=== PATIENT | male | born 1990 | race African-American/Black ===

== ENCOUNTER 2016-11-01 05:51 | Emergency (ER) | payer BC ==
[2016-11-01] MEDS ORDERED: predniSONE 20 MG TABLET (UD) PO ONE (06:04)
[2016-11-01] MEDS ORDERED: ALBUTEROL SO4 2.5/IPRATROPIUM 0.5 INH SOL 3 ML VIAL.NEB. NEB ONE ×2 (06:04→06:16)
[2016-11-01 06:10] VITALS: BP 130/75; PULSE 80; TEMP 98; BMI 30.7
--- NOTE | 2016-11-01 06:10 | PDOC ---
History of Present Illness - General Stated Complaint: DIFFICULTY BREATHING Time Seen by Provider: 11/01/16 05:59 History Source: Patient Exam Limitations: No Limitations - History of Present Illness Initial Comments: 11/01/16 06:05 25yo Male patient w/ PmHx: Asthma, and GERD presents to ED c/o trouble breathing x 1 week. Patient states he has been using rescue pump and nebulizer with no relief. Associated shortness of breath reported. Patient denies fever, CP, Abd pain, n/v/d, rash, or any other complaints at this time. Timing/Duration: reports: week Severity: reports: moderate Episode Description: See HPI Possible Cause: Yes: no prior episodes Modifying Factors: improves with: albuterol inhaler, albuterol nebulizer. worse with: activity, antibiotics, coughing, lying down, oxygen, rest, other Associated Symptoms: reports: shortness of breath. denies: denies symptoms, chest pain/soreness, cough, dizziness, earache, facial pain, fever/chills, headache, lightheadedness, muscle aches, nasal congestion, nasal drainage, sinus infection, sore throat, wheezing, other Aspirin Received prior to arrival: No: no aspirin today, unknown, 81 mg x 1, 81 mg x 2, 81 mg x 3, 81 mg x 4, 325 mg x 1, provided at home, provided by EMS, provided by ED Past History - Travel Traveled outside of the country in the last 30 days: No Close contact w/someone who was outside of country & ill: No - Past Medical History Allergies/Adverse Reactions: Allergies Allergy/AdvReac Type Severity Reaction Status Date / Time No Known Allergies Allergy Verified 11/01/16 06:13 Home Medications: Ambulatory Orders Albuterol 0.083% Nebulizer Sabra [Ventolin 0.083% Nebulizer Soln -] 1 neb NEB Q6H #30 vial 03/12/15 Albuterol Sulfate Inhaler - [Ventolin Hfa Inhaler -] 1 - 2 inh PO Q4H #1 inhaler 03/12/15 Prednisone [Deltasone -] 40 mg PO DAILY #14 tablet 03/12/15 Albuterol Sulfate Inhaler - [Ventolin HFA Inhaler -] 1 - 2 inh PO Q4H PRN #1 inhaler 11/01/16 Prednisone [Deltasone -] 10 mg PO ASDIR #21 tab 11/01/16 Asthma: Yes - Psycho/Social/Smoking Cessation Hx Suicidal Ideation: No Smoking History: Never smoked Respiratory Specific PMHX - Complaint Specific PMHX Angina: No Bronchitis: No Pneumonia: No Pulmonary Embolus: No TB (Tuberculosis): No Review of Systems - Review of Systems Able to Perform ROS?: Yes Is the patient limited British proficient: No Respiratory: Yes: Shortness of Breath, Wheezing. No: Stridor Cardiac (ROS): No: Chest Pain, Lightheadedness, Palpitations, Syncope, Chest Tightness ABD/GI: No: Diarrhea, Nausea, Vomiting All Other Systems: Reviewed and Negative *Physical Exam - Physical Exam General Appearance: Yes: Nourished, Appropriately Dressed, Mild Distress. No: Apparent Distress, Moderate Distress, Severe Distress HEENT: positive: EOMI, JUJU, Normal ENT Inspection, Normal Voice, Symmetrical, TMs Normal, Pharynx Normal. negative: Pharyngeal Erythema, Tonsillar Exudate, Tonsillar Erythema, Nasal Congestion, Rhinorrhea, Sinus Tenderness, TM Bulging, TM Dull, TM Erythema Neck: positive: Trachea midline, Normal Thyroid, Supple. negative: Stridor, Lymphadenopathy (R), Lymphadenopathy (L) Respiratory/Chest: positive: Wheezing. negative: Lungs Clear, Normal Breath Sounds, Paradoxal Breathing, Stridor Cardiovascular: positive: Regular Rhythm, Regular Rate. negative: Tachycardia Musculoskeletal: positive: Normal Inspection. negative: CVA Tenderness Extremity: positive: Normal Capillary Refill, Normal Inspection, Normal Range of Motion. negative: Pedal Edema, Swelling, Calf Tenderness, Erythema, Inflammation Integumentary: positive: Normal Color, Dry, Warm. 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 intact, Fully Oriented, Alert, Normal Mood/ Affect, Normal Response, Motor Strength 5/5 *DC/Admit/Observation/Transfer Diagnosis at time of Disposition: Asthma exacerbation - Discharge Dispostion Disposition: HOME Condition at time of disposition: Improved Admit: No - Prescriptions Prescriptions: Prednisone [Deltasone -] 10 mg PO ASDIR #21 tab Albuterol Sulfate Inhaler - [Ventolin HFA Inhaler -] 1 - 2 inh PO Q4H PRN #1 inhaler PRN Reason: trouble breathing - Patient Instructions Printed Discharge Instructions: DI for Asthma -- Adult Additional Instructions: FOLLOW UP WITH YOUR PRIMARY CARE PROVIDER. CALL TO SCHEDULE APPOINTMENT. TAKE MEDICATIONS PRESCRIBED. RETURN IF SYMPTOMS WORSEN OR ANY CONCERNS FOR FURTHER EVALUATION. Print Language: IRISH - Post Discharge Activity Work/School Note: Back to Work
[2016-11-01] MEDS ORDERED: predniSONE 20 MG TABLET (UD) ONE (06:15)
[2016-11-01] MEDS ORDERED: ALBUTEROL SO4 0.083% IH SOL 2.5 MG/3 ML VIAL.NEB. NEB ONE (06:46)
[2016-11-01] MEDS: ALBUTEROL SO4 0.083% IH SOL 2.5 MG/3 ML VIAL.NEB. NEB SCH ×2 (06:47→07:03)
== END 2016-11-01 07:09 | disposition home or self-care (01) ==
LOC: JER 05:51
PROC: 3E0F7GC Introduction of Other Therapeutic Substance into Respiratory Tract, Via Natural or Artificial Opening (ICD-10-PCS; principal; 2016-11-01)
PROC: 3E0F7GC Introduction of Other Therapeutic Substance into Respiratory Tract, Via Natural or Artificial Opening (ICD-10-PCS; 2016-11-01)
DX: J45.901 Unspecified asthma with (acute) exacerbation (principal)
CPT/HCPCS: 99281-25

== ENCOUNTER 2017-05-30 03:22 | Emergency (ER) | payer BC ==
[2017-05-30] MEDS ORDERED: ALBUTEROL SO4 2.5/IPRATROPIUM 0.5 INH SOL 3 ML VIAL.NEB. NEB ONE ×4 (03:31→03:56)
[2017-05-30 03:34] VITALS: TEMP 98.4; BMI 24.4
[2017-05-30] MEDS ORDERED: predniSONE 20 MG TABLET (UD) PO ONE (03:34)
[2017-05-30] MEDS: ALBUTEROL SO4 2.5/IPRATROPIUM 0.5 INH SOL 3 ML VIAL.NEB. NEB SCH (03:36)
[2017-05-30] MEDS ORDERED: predniSONE 20 MG TABLET (UD) ONE (03:37)
--- NOTE | 2017-05-30 03:37 | PDOC ---
History of Present Illness - General Chief Complaint: Shortness of Breath Stated Complaint: S.O.B. Time Seen by Provider: 05/30/17 03:31 History Source: Patient - History of Present Illness Initial Comments: 05/30/17 03:35 26-year-old male complaining of shortness of breath and wheezing after cleaning dust [address] in the house. The patient has a history of asthma and environmental ALLERGIES. Patient reports that he has not taken his nebulizer because he ran out of meds. Past medical history of asthma with no inpatient admission. Past History - Past Medical History Allergies/Adverse Reactions: Allergies Allergy/AdvReac Type Severity Reaction Status Date / Time No Known Allergies Allergy Verified 11/01/16 06:13 Home Medications: Ambulatory Orders Albuterol 0.083% Nebulizer Sabra [Ventolin 0.083% Nebulizer Soln -] 1 neb NEB Q6H #30 vial 03/12/15 Albuterol Sulfate Inhaler - [Ventolin HFA Inhaler -] 1 - 2 inh PO Q4H PRN #1 inhaler 11/01/16 Albuterol 0.083% Nebulizer Sabra [Ventolin 0.083% Nebulizer Soln -] 1 neb NEB Q6H #30 vial 05/30/17 predniSONE [Deltasone -] 40 mg PO DAILY #8 tablet 05/30/17 Asthma: Yes COPD: No - Suicide/Smoking/Psychosocial Hx Smoking History: Never smoked Have you smoked in the past 12 months: No Hx Alcohol Use: No Drug/Substance Use Hx: No Respiratory Specific PMHX - Complaint Specific PMHX Angina: No Bronchitis: No Pneumonia: No Pulmonary Embolus: No TB (Tuberculosis): No Review of Systems - Review of Systems Able to Perform ROS?: Yes Is the patient limited Portuguese proficient: No Respiratory: Yes: Cough, Shortness of Breath, Wheezing *Physical Exam - Vital Signs Last Vital Signs Temp Pulse Resp BP Pulse Ox 98.4 F 91 H 22 150/90 93 L 05/30/17 03:33 05/30/17 03:33 05/30/17 03:33 05/30/17 03:33 05/30/17 03:33 - Physical Exam General Appearance: Yes: Appropriately Dressed Respiratory/Chest: positive: Decreased Breath Sounds, Wheezing Cardiovascular: positive: Regular Rhythm, Regular Rate Gastrointestinal/Abdominal: positive: Normal Bowel Sounds, Soft Extremity: positive: Normal Capillary Refill, Normal Inspection, Normal Range of Motion ED Treatment Course - Medications Given in the ED: ED Medications Discontinued Medications Generic Name Dose Route Start Last Admin Trade Name Gisselle PRN Reason Stop Dose Admin Albuterol/Ipratropium 1 amp 05/30/17 03:32 05/30/17 03:32 Duoneb - NEB 05/30/17 03:33 1 amp NOW ONE Administration Progress Note - Progress Note Progress Note: A: asthma Medical Decision Making - Medical Decision Making 05/30/17 04:37 improved aeration. o2 sat 107 resp 20 o2 sat 100%l *DC/Admit/Observation/Transfer Diagnosis at time of Disposition: Asthma exacerbation Qualifiers: Asthma severity: mild Asthma persistence: persistent Qualified Code(s): J45.31 - Mild persistent asthma with (acute) exacerbation - Prescriptions Prescriptions: Albuterol 0.083% Nebulizer Sabra [Ventolin 0.083% Nebulizer Soln -] 1 neb NEB Q6H #30 vial predniSONE [Deltasone -] 40 mg PO DAILY #8 tablet - Referrals Referrals: Azael Smart MD, [Primary Care Provider] - Call tomorrow - Patient Instructions Printed Discharge Instructions: Asthma -- Adult Additional Instructions: use albuterol every 4 hours as needed for cough and wheezing. take prednisone once daily starting tomorrow. follow up with your doctor. return to the the ER if symptoms worsen. - Post Discharge Activity Forms/Work/School Notes: Back to Work
[2017-05-30 03:38] VITALS: BP 108/60
[2017-05-30 04:44] VITALS: PULSE 106
== END 2017-05-30 05:01 | disposition home or self-care (01) ==
LOC: JER 03:22
PROC: 3E0F7GC Introduction of Other Therapeutic Substance into Respiratory Tract, Via Natural or Artificial Opening (ICD-10-PCS; principal; 2017-05-30)
PROC: 3E0F7GC Introduction of Other Therapeutic Substance into Respiratory Tract, Via Natural or Artificial Opening (ICD-10-PCS; 2017-05-30)
DX: J45.31 Mild persistent asthma with (acute) exacerbation (principal)
CPT/HCPCS: 99282-25

== ENCOUNTER 2017-10-19 11:37 | Emergency (ER) | payer SELFPAY ==
[2017-10-19 11:58] VITALS: BP 111/68; PULSE 69; TEMP 98.6; BMI 25.7
[2017-10-19] MEDS ORDERED: ALBUTEROL SO4 2.5/IPRATROPIUM 0.5 INH SOL 3 ML VIAL.NEB. NEB ONE ×4 (12:08→12:36)
--- NOTE | 2017-10-19 12:17 | PDOC ---
History of Present Illness - General Chief Complaint: Asthma Stated Complaint: SOB Time Seen by Provider: 10/19/17 12:05 History Source: Patient Exam Limitations: No Limitations - History of Present Illness Initial Comments: 10/19/17 12:42 26 yr male with history of asthma, ran out of nebulizers, no history of intubations, no hospitalizations. Pt has been cleaning and states he has inhaled dust and chemicals. Severity: reports: mild Past History - Past Medical History Allergies/Adverse Reactions: Allergies Allergy/AdvReac Type Severity Reaction Status Date / Time No Known Allergies Allergy Verified 10/19/17 11:55 Home Medications: Ambulatory Orders Albuterol Sulfate Inhaler - [Ventolin HFA Inhaler -] 1 - 2 inh PO Q4H PRN #1 inhaler 11/01/16 Albuterol 0.083% Nebulizer Sabra [Ventolin 0.083% Nebulizer Soln -] 1 neb NEB Q6H #30 vial 10/19/17 predniSONE [Deltasone -] 40 mg PO DAILY #10 tablet 10/19/17 Asthma: Yes COPD: No - Suicide/Smoking/Psychosocial Hx Smoking History: Never smoked Have you smoked in the past 12 months: No Information on smoking cessation initiated: No Hx Alcohol Use: No Drug/Substance Use Hx: No Substance Use Type: None Respiratory Specific PMHX - Complaint Specific PMHX Angina: No Bronchitis: No Pneumonia: No Pulmonary Embolus: No TB (Tuberculosis): No *Physical Exam - Vital Signs Last Vital Signs Temp Pulse Resp BP Pulse Ox 98.6 F 69 18 111/68 94 L 10/19/17 11:55 10/19/17 11:55 10/19/17 11:55 10/19/17 11:55 10/19/17 11:55 - Physical Exam General Appearance: Yes: Nourished, Appropriately Dressed HEENT: positive: EOMI, JUJU Neck: positive: Supple Respiratory/Chest: positive: Normal Breath Sounds, Wheezing Cardiovascular: positive: Regular Rhythm, Regular Rate Extremity: positive: Normal Capillary Refill, Normal Inspection, Normal Range of Motion Integumentary: positive: Normal Color, Dry, Warm Neurologic: positive: Normal Response, Motor Strength 5/5 Medical Decision Making - Medical Decision Making 10/19/17 12:45 cc: asthma , coughing ran out of nebuylizer no intubations, speaking full sentences will give duoneb prednisone now 10/19/17 13:19 improved after nebs, no wheezing now dc inst given pt is improved all dc inst discussed *DC/Admit/Observation/Transfer Diagnosis at time of Disposition: Asthma Qualifiers: Asthma severity: mild Asthma persistence: intermittent Asthma complication type : with acute exacerbation Qualified Code(s): J45.21 - Mild intermittent asthma with (acute) exacerbation - Discharge Dispostion Disposition: HOME Condition at time of disposition: Good - Prescriptions Prescriptions: Albuterol 0.083% Nebulizer Sabra [Ventolin 0.083% Nebulizer Soln -] 1 neb NEB Q6H #30 vial predniSONE [Deltasone -] 40 mg PO DAILY #10 tablet - Referrals Referrals: Azael Smart MD, MD [Primary Care Provider] - - Patient Instructions Printed Discharge Instructions: Asthma -- Adult Additional Instructions: drink pleanty of water to stay hydrated take the prednisone tomorrow next dose use the nebulizer every 4hrs return to ER for any worsening symptoms follow with your doctor next week - Post Discharge Activity Forms/Work/School Notes: Back to Work
[2017-10-19] MEDS ORDERED: predniSONE 20 MG TABLET (UD) PO ONE (12:35)
[2017-10-19] MEDS ORDERED: predniSONE 20 MG TABLET (UD) ONE (12:36)
== END 2017-10-19 12:57 | disposition home or self-care (01) ==
LOC: JER 11:37
PROC: 3E0F7GC Introduction of Other Therapeutic Substance into Respiratory Tract, Via Natural or Artificial Opening (ICD-10-PCS; principal; 2017-10-19)
PROC: 3E0F7GC Introduction of Other Therapeutic Substance into Respiratory Tract, Via Natural or Artificial Opening (ICD-10-PCS; 2017-10-19)
DX: J45.20 Mild intermittent asthma, uncomplicated (principal)
CPT/HCPCS: 99281-25; J7620